=== PATIENT | female | born 1960 | race Caucasian/White ===

== ENCOUNTER 2016-11-29 14:30 | Day surgery (SDC) | payer OTHER ==
[~2016-11-29] VITALS: Ht 170.2 cm; Wt 67.1 kg
[~2016-11-29 14:30] MED LIST: ALENDRONATE SOD35 MG PO; ARAVA20 MG PO; ASPIRIN EC325 MG PO; CATAPRES0.1 MG PO; CELECOXIB200 MG PO; CUTIVATE 0.005%60 GM TP; CYANOCOBALAM1000 MCG PO; DILAUDID2 MG PO; ELAVIL25 MG PO; ENBREL50 MG/1 ML SC; FLEXERIL10 MG PO; HYDROCHLOROTH12.5 M3 PO; LASIX20 MG PO; LIDOCAINE700 MG TD; LYRICA75 MG PO; MIRALAX17 GM PO; MORPHINE SULFAT15 M1 PO; MS CONTIN,ORAMO15 M1 PO; NORVASC5 MG PO; OXYCODONE HCL10 MG PO; OXYCODONE HCL5 MG PO; PERCOCET 10/1 TABLET PO; SENNA PLUS TAB1 EACH PO; SUPRENZA ODT30 MG PO; TENORMIN25 MG PO; VITAMIN B-6100 MG PO; XARELTO10 MG PO; [UNRECOGNIZED DRUG - OTHER] TP
[2016-11-29] MEDS ORDERED: ELAVIL10 MG PO (14:59)
== END 2016-11-29 16:17 | disposition home or self-care (01) ==
LOC: PAIN 14:30 → SDC 15:00 → PAIN 16:17
PROC: 3E0S33Z Introduction of Anti-inflammatory into Epidural Space, Percutaneous Approach (ICD-10-PCS; principal; 2016-11-29)
DX: M54.16 Radiculopathy, lumbar region (principal); F41.9 Anxiety disorder, unspecified; M51.26 Other intervertebral disc displacement, lumbar region; M17.9 Osteoarthritis of knee, unspecified; I10 Essential (primary) hypertension; Z79.899 Other long term (current) drug therapy; Z88.2 Allergy status to sulfonamides; Z88.8 Allergy status to other drugs, medicaments and biological substances
CPT/HCPCS: J1100; J2250; J3010

== ENCOUNTER → 2017-01-12 | Outpatient (CLI) | payer OTHER ==
[~2017-01-12] MED LIST changes: +ELAVIL10 MG PO
== END | disposition home or self-care (01) ==
LOC: AMB 12:55
DX: M48.8X6 Other specified spondylopathies, lumbar region (principal); M41.9 Scoliosis, unspecified; M47.816 Spondylosis without myelopathy or radiculopathy, lumbar region; M48.06 Spinal stenosis, lumbar region
CPT/HCPCS: 62304; 72132

== ENCOUNTER 2017-04-26 08:23 | Inpatient (IN) | payer OTHER ==
[~2017-04-26] VITALS: Ht 172.7 cm; Wt 82.1 kg
[~2017-04-26 08:23] MED LIST changes: +ENBREL25 MG/0.5 SC; +PHENTERMINE HCL30 MG PO
[2017-04-26 09:00] VITALS: BP 132/80
[2017-04-26 17:01] VITALS: BP 11/56; BP 111/56
[2017-04-26 19:40] VITALS: BP 114/67
[2017-04-26 23:14] VITALS: BP 96/54
[2017-04-27 05:16] VITALS: BP 91/55
[2017-04-27 06:47] LABS: HEMATOCRIT 30.5 % (36.0-46.0); MCH 31.1 PG (29.0-34.0); MCHC 32.1 G/DL (30.0-36.0); MCV 96.8 FL (83-99); MEAN PLAT.VOLUME 11.4 uM^3 (9.5-12.4); RBC DIS.WIDTH-CV 13.2 % (11.8-14.6); RBC DIS.WIDTH-SD 46.3 % (39-53)
[2017-04-27 06:58] LABS: PLATELET COUNT 193 K/uL (156-360); RED BLOOD COUNT 3.15 M/uL (3.80-5.20)
[2017-04-27 07:12] LABS: ANION GAP 7 MEQ/L (2-14); CHLORIDE 109 MEQ/L (99-109); GFR ESTIMATE (CALCULATED) > 59 mL/min/; GLUCOSE 116 mg/dL (70-99); POTASSIUM 4.6 MEQ/L (3.7-5.4); SAMPLE HEMOLYSIS CHECK 0; SAMPLE ICTERIC CHECK 0; SAMPLE LIPEMIA CHECK 0; SODIUM 143 MEQ/L (136-147); UREA NITROGEN (BUN) 23 mg/dL (9-23)
[2017-04-27 07:14] VITALS: BP 94/55
[2017-04-27] MEDS ORDERED: GABAPENTIN100 MG PO (07:45)
[2017-04-27] MEDS ORDERED: CYCLOBENZAPRINE10 MG PO (07:45)
[2017-04-27] MEDS ORDERED: PERCOCET 10/1 TABLET PO ×2 (07:45→17:01)
[2017-04-27 10:46] VITALS: BP 99/66
[2017-04-27 16:52] VITALS: BP 109/56
== END 2017-04-27 18:15 | disposition home or self-care (01) | DRG 460 ==
LOC: 2SOUTH 08:23 → 3EAST 08:23 → 2SOUTH 08:55 → 3EAST 16:08
PROVIDERS: Neurological Surgery
PROC: 0SG10AJ Fusion of 2 or more Lumbar Vertebral Joints with Interbody Fusion Device, Posterior Approach, Anterior Column, Open Approach (ICD-10-PCS; principal; 2017-04-26)
DX: M43.16 Spondylolisthesis, lumbar region (principal); M41.9 Scoliosis, unspecified; M48.06 Spinal stenosis, lumbar region; M85.80 Other specified disorders of bone density and structure, unspecified site; G96.8 Other specified disorders of central nervous system; M46.96 Unspecified inflammatory spondylopathy, lumbar region; L40.53 Psoriatic spondylitis; Z96.653 Presence of artificial knee joint, bilateral; Z96.642 Presence of left artificial hip joint; R29.6 Repeated falls; S32.028A Other fracture of second lumbar vertebra, initial encounter for closed fracture; W18.30XA Fall on same level, unspecified, initial encounter; I73.9 Peripheral vascular disease, unspecified
CPT/HCPCS: 72020; 72100; 76000; 80048; 85027; 94799; J0131; J0330; J0690; J1170; J1580; J2250; J2405; J2710; J2765; J2930; J3010; J3370; J3480; S0020

== ENCOUNTER 2017-09-01 14:25 | Day surgery (SDC) | payer OTHER ==
[~2017-09-01] VITALS: Ht 172.7 cm; Wt 70.2 kg
[~2017-09-01 14:25] MED LIST changes: +CYCLOBENZAPRINE10 MG PO; +GABAPENTIN100 MG PO; +NEURONTIN100 MG PO
== END 2017-09-01 16:18 | disposition home or self-care (01) ==
LOC: CATH 14:25
PROC: 3E0S33Z Introduction of Anti-inflammatory into Epidural Space, Percutaneous Approach (ICD-10-PCS; principal; 2017-09-01)
DX: M54.16 Radiculopathy, lumbar region (principal); G89.4 Chronic pain syndrome; Z88.2 Allergy status to sulfonamides
CPT/HCPCS: J1100; J2250; J3010

== ENCOUNTER 2017-10-17 20:54 | Inpatient (IN) | payer OTHER ==
[~2017-10-17] VITALS: Ht 167.6 cm; Wt 84.2 kg
[~2017-10-17 20:54] MED LIST changes: -ENBREL25 MG/0.5 SC; +ENBREL50 MG/1 M1 SC; +GABAPENTIN300 MG PO; +MORPHINE SULFAT15 MG PO
[2017-10-18 14:05] VITALS: BP 132/55
[2017-10-19] VITALS (10 sets, daily range): BP systolic 82–142; BP diastolic 48–77
[2017-10-19 05:25] LABS: HEMATOCRIT 31.9 % (36.0-46.0); MCH 29.6 PG (29.0-34.0); MCHC 32.3 G/DL (30.0-36.0); MCV 91.7 FL (83-99); PLATELET COUNT 190 K/uL (156-360); RBC DIS.WIDTH-SD 43.8 % (39-53); RED BLOOD COUNT 3.48 M/uL (3.80-5.20)
[2017-10-19 17:07] LABS: HEMATOCRIT 26.4 % (36.0-46.0); MCV 92.6 FL (83-99)
[2017-10-20 04:17] VITALS: BP 120/66
[2017-10-20 07:51] VITALS: BP 131/71
[2017-10-20 11:07] VITALS: BP 111/66
[2017-10-20 15:10] VITALS: BP 144/72
[2017-10-20 19:44] VITALS: BP 116/55
[2017-10-20 23:02] VITALS: BP 107/69
[2017-10-21 05:16] VITALS: BP 120/82
[2017-10-21 10:11] VITALS: BP 121/72
[2017-10-21 12:11] VITALS: BP 132/78
[2017-10-21 19:51] VITALS: BP 102/58
[2017-10-22 00:04] VITALS: BP 126/75
[2017-10-22 04:38] VITALS: BP 109/65
[2017-10-22 09:43] VITALS: BP 131/79
[2017-10-22 17:08] VITALS: BP 123/78
[2017-10-22 20:20] VITALS: BP 102/57
[2017-10-22 23:56] VITALS: BP 78/41
[2017-10-23] VITALS (8 sets, daily range): BP systolic 105–140; BP diastolic 63–92
[2017-10-23 06:13] LABS: HEMATOCRIT 23.9 % (36.0-46.0); MCH 29.3 PG (29.0-34.0); MCHC 32.2 G/DL (30.0-36.0); MCV 90.9 FL (83-99); PLATELET COUNT 193 K/uL (156-360); RBC DIS.WIDTH-CV 12.5 % (11.8-14.6); RBC DIS.WIDTH-SD 41.2 % (39-53); WHITE BLOOD COUNT 6.7 K/uL (4.1-10.2)
[2017-10-23 06:54] LABS: RED BLOOD COUNT 2.63 M/uL (3.80-5.20)
[2017-10-24 00:06] VITALS: BP 145/82
[2017-10-24 04:00] VITALS: BP 119/71
[2017-10-24 07:10] LABS: HEMATOCRIT 26.2 % (36.0-46.0); MCV 92.9 FL (83-99)
[2017-10-24 08:21] VITALS: BP 113/69
[2017-10-24] MEDS ORDERED: FENTANYL1 EAC5 TD (11:47)
[2017-10-24] MEDS ORDERED: OXYCODONE HCL5 MG PO (11:47)
[2017-10-24] MEDS ORDERED: CYCLOBENZAPRINE10 MG PO (11:47)
[2017-10-24] MEDS ORDERED: MORPHINE S10 MG/1 M3 IM (15:40)
[2017-10-24] MEDS ORDERED: SALINE FLUSH 5 M5 ML IV (15:41)
[2017-10-24] MEDS ORDERED: COLACE100 MG PO (15:41)
[2017-10-24] MEDS ORDERED: OXYCODONE HCL20 M1 PO (15:42)
[2017-10-24] MEDS ORDERED: TYLENOL REGULA325 MG PO (15:43)
[2017-10-24] MEDS ORDERED: ACETAMINOPHEN325 M3 PO (15:45)
[2017-10-24] MEDS ORDERED: SENOKOT S,PE1 TABLET PO (15:46)
[2017-10-24] MEDS ORDERED: ZOFRAN4 MG/2 ML IV (15:46)
[2017-10-24] MEDS ORDERED: MAG-AL LIQUID30 ML PO (15:48)
[2017-10-24] MEDS ORDERED: PHILLIPS'400 MG/5 M PO (15:49)
[2017-10-24] MEDS ORDERED: VALIUM10 MG PO (15:50)
[2017-10-24] MEDS ORDERED: CELEBREX200 MG PO (15:51)
[2017-10-24] MEDS ORDERED: DULCOLAX5 MG PO (15:51)
== END 2017-10-24 14:05 | DRG 454 ==
LOC: ENRESERV 20:54 → 2SOUTH 10-18 08:43 → 3EAST 10-18 13:13 → 2SOUTH 10-18 15:15 → ENRESERV 10-18 15:38 → 2SOUTH 10-18 16:30 → 3EAST 10-19 01:02
PROVIDERS: Neurological Surgery; Physician Assistant
DX: M51.16 Intervertebral disc disorders with radiculopathy, lumbar region (principal); M43.16 Spondylolisthesis, lumbar region; M48.061 Spinal stenosis, lumbar region without neurogenic claudication; M84.68XA Pathological fracture in other disease, other site, initial encounter for fracture; M85.80 Other specified disorders of bone density and structure, unspecified site; M41.9 Scoliosis, unspecified; L40.50 Arthropathic psoriasis, unspecified; G83.4 Cauda equina syndrome; M46.96 Unspecified inflammatory spondylopathy, lumbar region; M19.90 Unspecified osteoarthritis, unspecified site; I10 Essential (primary) hypertension; G89.29 Other chronic pain; Z96.642 Presence of left artificial hip joint; Z96.653 Presence of artificial knee joint, bilateral; Z98.1 Arthrodesis status
CPT/HCPCS: 72070; 72100; 76000; 85014; 85018; 85027; 86850; 86900; 86901; 86920; 93005; 94799; 97530 GO; 97530 GP; C1713; C1821; J0330; J0690; J1170; J1580; J2250; J2270; J2300; J2405; J2710; J2930; J3010; J3370; J3480; J7030; J7040; P9016; P9045; S0020

== ENCOUNTER 2017-10-23 10:13 | Inpatient (IN) | payer OTHER ==
[~2017-10-23] VITALS: Ht 170.2 cm; Wt 85.4 kg
[2017-10-24] MEDS ORDERED: CYCLOBENZAPRINE10 MG PO (11:47)
[2017-10-24] MEDS ORDERED: FENTANYL1 EAC5 TD (11:47)
[2017-10-24] MEDS ORDERED: OXYCODONE HCL5 MG PO (11:47)
[2017-10-24 14:03] VITALS: BP 139/79
[2017-10-24] MEDS ORDERED: MORPHINE S10 MG/1 M3 IM (15:40)
[2017-10-24] MEDS ORDERED: COLACE100 MG PO (15:41)
[2017-10-24] MEDS ORDERED: SALINE FLUSH 5 M5 ML IV (15:41)
[2017-10-24] MEDS ORDERED: OXYCODONE HCL20 M1 PO (15:42)
[2017-10-24] MEDS ORDERED: TYLENOL REGULA325 MG PO (15:43)
[2017-10-24] MEDS ORDERED: ACETAMINOPHEN325 M3 PO (15:45)
[2017-10-24] MEDS ORDERED: ZOFRAN4 MG/2 ML IV (15:46)
[2017-10-24] MEDS ORDERED: SENOKOT S,PE1 TABLET PO (15:46)
[2017-10-24] MEDS ORDERED: MAG-AL LIQUID30 ML PO (15:48)
[2017-10-24] MEDS ORDERED: PHILLIPS'400 MG/5 M PO (15:49)
[2017-10-24] MEDS ORDERED: VALIUM10 MG PO (15:50)
[2017-10-24] MEDS ORDERED: CELEBREX200 MG PO (15:51)
[2017-10-24] MEDS ORDERED: DULCOLAX5 MG PO (15:51)
[2017-10-24 23:55] VITALS: BP 105/64
[2017-10-25 06:06] VITALS: BP 133/73
[2017-10-25 06:57] LABS: MCH 29.4 PG (29.0-34.0); MCHC 31.9 G/DL (30.0-36.0); MCV 92.2 FL (83-99); MEAN PLAT.VOLUME 9.5 uM^3 (9.5-12.4); PLATELET COUNT 242 K/uL (156-360); RBC DIS.WIDTH-CV 12.5 % (11.8-14.6); RBC DIS.WIDTH-SD 42.5 % (39-53); RED BLOOD COUNT 2.82 M/uL (3.80-5.20); WHITE BLOOD COUNT 8.2 K/uL (4.1-10.2)
[2017-10-25 07:30] LABS: ALKALINE PHOSPHATASE 191 IU/L (3-129); ANION GAP 6 MEQ/L (2-14); CHLORIDE 104 MEQ/L (99-109); GFR ESTIMATE (CALCULATED) > 59 mL/min/; GLUCOSE 91 mg/dL (70-99); POTASSIUM 4.4 MEQ/L (3.7-5.4); SAMPLE HEMOLYSIS CHECK 0; SAMPLE ICTERIC CHECK 0; SAMPLE LIPEMIA CHECK 0; SODIUM 140 MEQ/L (136-147); TOTAL BILIRUBIN 0.4 MG/DL (0.0-1.0); UREA NITROGEN (BUN) 6 mg/dL (9-23)
[2017-10-25 16:12] VITALS: BP 153/85
[2017-10-26 04:41] VITALS: BP 104/61
[2017-10-26 16:00] VITALS: BP 112/71
[2017-10-27 05:17] VITALS: BP 123/68
[2017-10-27 15:55] VITALS: BP 90/56
[2017-10-27 20:52] VITALS: BP 114/73
[2017-10-28 05:11] VITALS: BP 112/66
[2017-10-28] MEDS ORDERED: OXYCODONE HCL5 MG PO (11:17)
[2017-10-28] MEDS ORDERED: FENTANYL1 EAC5 TD (11:26)
[2017-10-28 15:04] VITALS: BP 117/70
[2017-10-28] MEDS ORDERED: SENOKOT S,PE1 TABLET PO (15:04)
[2017-10-28] MEDS ORDERED: CYCLOBENZAPRINE10 MG PO (15:04)
[2017-10-28] MEDS ORDERED: MIRALAX17 GM PO (15:04)
[2017-10-28 16:54] LABS: HEMATOCRIT 30.1 % (36.0-46.0); MCH 29.6 PG (29.0-34.0); MCHC 31.6 G/DL (30.0-36.0); MCV 93.8 FL (83-99); MEAN PLAT.VOLUME 9.1 uM^3 (9.5-12.4); RBC DIS.WIDTH-CV 12.4 % (11.8-14.6); RBC DIS.WIDTH-SD 43.1 % (39-53); RED BLOOD COUNT 3.21 M/uL (3.80-5.20); WHITE BLOOD COUNT 7.6 K/uL (4.1-10.2)
[2017-10-28 17:19] LABS: ANION GAP 9 MEQ/L (2-14); CHLORIDE 102 MEQ/L (99-109); GFR ESTIMATE (CALCULATED) > 59 mL/min/; GLUCOSE 83 mg/dL (70-99); POTASSIUM 4.1 MEQ/L (3.7-5.4); SAMPLE HEMOLYSIS CHECK 0; SAMPLE ICTERIC CHECK 0; SAMPLE LIPEMIA CHECK 0; SODIUM 141 MEQ/L (136-147); UREA NITROGEN (BUN) 13 mg/dL (9-23)
[2017-10-28 17:43] LABS: PLATELET COUNT 328 K/uL (156-360)
[2017-10-29 06:05] VITALS: BP 115/70
== END 2017-10-29 12:13 | disposition home or self-care (01) | DRG 945 ==
LOC: 3WEST 10:13 → ENPENDDIS 10-29 → 3WEST 10-29 12:13
PROVIDERS: Physical Medicine & Rehabilitation Pain Medicine
PROC: F07M0ZZ Range of Motion and Joint Mobility Treatment of Musculoskeletal System - Whole Body (ICD-10-PCS; principal; 2017-10-24)
DX: R53.1 Weakness (principal); G89.18 Other acute postprocedural pain; M54.5 Low back pain; R26.2 Difficulty in walking, not elsewhere classified; M79.605 Pain in left leg; L40.50 Arthropathic psoriasis, unspecified; M48.062 Spinal stenosis, lumbar region with neurogenic claudication; M51.16 Intervertebral disc disorders with radiculopathy, lumbar region; M43.16 Spondylolisthesis, lumbar region; M47.26 Other spondylosis with radiculopathy, lumbar region; D62 Acute posthemorrhagic anemia; M41.9 Scoliosis, unspecified; M84.48XK Pathological fracture, other site, subsequent encounter for fracture with nonunion; B00.1 Herpesviral vesicular dermatitis; L24.89 Irritant contact dermatitis due to other agents; I10 Essential (primary) hypertension; M19.90 Unspecified osteoarthritis, unspecified site; M85.80 Other specified disorders of bone density and structure, unspecified site; G89.29 Other chronic pain; Z98.1 Arthrodesis status; Z96.642 Presence of left artificial hip joint; Z96.653 Presence of artificial knee joint, bilateral; Z87.891 Personal history of nicotine dependence; Z82.49 Family history of ischemic heart disease and other diseases of the circulatory system
CPT/HCPCS: 80048; 80053; 85027; 97110 GO; 97530 GP; A6214